=== PATIENT | male | born 1990 | race Caucasian/White ===

== ENCOUNTER 2019-01-13 19:14 | Emergency (ER) | payer SELFPAY ==
[~2019-01-13] VITALS: Ht 152.4 cm; Wt 115.0 kg
[~2019-01-13 19:14] MED LIST: NAPR-985 PO
[2019-01-13 19:32] VITALS: Ht 152.4 cm; Wt 115.0 kg
[2019-01-13] MEDS ORDERED: IBUPROFEN 600 MG TAB PO ONE (21:30)
[2019-01-13 22:14] VITALS: BP 133/91; PULSE 77; RESP 18
--- NOTE | 2019-01-15 05:46 | ERD ---
ER Documentation Chief Complaint Chief Complaint left knee, right wrist pain, fell while riding skateboard x 3 hours ago HPI 28-year-old male presents to the emergency department complaining of severe left knee pain after fall from his skateboard which occurred 3 hours prior to arrival. There is no loss of consciousness or head injury. Patient reports pain to the left knee which is worse with movement. Pain is moderate to severe. He tried no medication for relief of symptoms. ROS All systems reviewed and are negative except as per history of present illness. Medications Home Meds Active Scripts Naproxen* (Naprosyn*) 500 Mg Tablet, 500 MG PO BID PRN for PAIN AND/OR INFLAMMATION, #30 TAB Prov:ROQUE MCKEON PA-C 01/13/19 Allergies Allergies: Coded Allergies: No Known Allergy (Unverified , 01/13/19) PMhx/Soc Medical and Surgical Hx: pt denies Medical Hx, pt denies Surgical Hx Hx Alcohol Use: No Hx Substance Use: No Hx Tobacco Use: Yes Smoking Status: Current every day smoker Physical Exam Vitals Vital Signs Date Temp Pulse Resp B/P (MAP) Pulse Ox O2 O2 Flow FiO2 Time Delivery Rate 01/13/19 99.1 77 18 133/91 100 22:14 (105) 01/13/19 98.8 84 20 137/74 98 19:32 (95) Physical Exam Const: No acute distress Head: Atraumatic Eyes: Normal Conjunctiva ENT: Normal External Ears, Nose and Mouth. Neck: Full range of motion. No meningismus. Resp: Clear to auscultation bilaterally Cardio: Regular rate and rhythm, no murmurs Skin: No petechiae or rashes Back: No midline or flank tenderness Ext: Tenderness palpation of the left anterior knee. Limited range of motion secondary to pain. Patient is neurovascularly intact distally. Strength and sensation intact to the left lower extremity. Neur: Awake and alert Psych: Normal Mood and Affect Results 24 hrs Current Medications Medications Dose Sig/Tamara Start Time Status Last (Trade) Ordered Route PRN Stop Time Admin Dose Reason Admin Ibuprofen 600 mg ONCE ONCE 01/13/19 DC 01/13/19 (Motrin) PO 21:30 21:13 01/13/19 21:[address] [address] Radiology Main Line: [phone] DIAGNOSTIC IMAGING REPORT Patient: MI ZAFAR : 1990 Age: 28 Sex: M MR #: [id number] DOS: 01/13/19 0000 Ordering MD: ROQUE MCKEON PA-C Location: [facility] Room/Bed: PROCEDURE: Left knee x-ray CLINICAL INDICATION: Knee pain TECHNIQUE: AP, lateral and tunnel views of the left knee were obtained. COMPARISON: None FINDINGS: There is normal mineralization. No acute fracture or dislocation is seen. There are no significant degenerative changes. There is no joint effusion. There is prepatellar soft tissue swelling. RPTAT: AA IMPRESSION: Prepatellar soft tissue swelling. No acute fracture. .Romain Regan MD, MD Date Time Electronically viewed and signed by .Romain Regan MD, MD on 01/13/2019 21:35 .S/ CC: ROQUE MCKEON PA-C [id number] Procedures/MDM 28-year-old male presents emergency department complaining of left knee pain after injury. Patient required mobilization of the left knee with knee immobilizer for stabilization of the joint.Splint Assessment: Neurovascularly intact post splint placement with good fit. Patient's extremity symptoms have stabilized while they have been evaluated in the department and are appropriate for outpatient follow up. No evidence of compartment syndrome, neurologic injury, vascular injury, open joint, open fracture, tendon laceration, or foreign body. Patient advised to have 24 to 48-hour follow-up with orthopedic physician. He was given resources to do so. No evidence of life-threatening pathology at time of discharge. Pt/family in agreement with discharge plan/diagnosis. Pt/family advised to return immediately with any new or worsening symptoms. Follow-up with primary care physician within the next 1-2 days. Departure Diagnosis: Primary Impression: Left knee injury Encounter type: initial encounter Qualified Codes: S89.92XA - Unspecified injury of left lower leg, initial encounter Condition: Fair Patient Instructions: Knee Effusion Referrals: [facility] YOU HAVE RECEIVED A MEDICAL SCREENING EXAM AND THE RESULTS INDICATE THAT YOU DO NOT HAVE A CONDITION THAT REQUIRES URGENT TREATMENT IN THE EMERGENCY DEPARTMENT. FURTHER EVALUATION AND TREATMENT OF YOUR CONDITION CAN WAIT UNTIL YOU ARE SEEN IN YOUR DOCTORS OFFICE WITHIN THE NEXT 1-2 DAYS. IT IS YOUR RESPONSIBILITY TO MAKE AN APPOINTMENT FOR FOLOW-UP CARE. IF YOU HAVE A PRIMARY DOCTOR --you should call your primary doctor and schedule an appointment IF YOU DO NOT HAVE A PRIMARY DOCTOR YOU CAN CALL OUR PHYSICIAN REFERRAL HOTLINE AT IF YOU CAN NOT AFFORD TO SEE A PHYSICIAN YOU CAN CHOSE FROM THE FOLLOWING [facility] [address] [facility] [address] [facility] [facility] [address] [facility] [address] [facility] [facility] [address] [facility] [facility]. [address] [facility]. [facility] Urgent Care 7 a.m.- 11 p.m. Every Day of the Week NO APPOINTMENT OR AUTHORIZATION NEEDED [facility] Hours: Mon-Fri 9:00 AM - 5:00 PM Additional Instructions: SPECIALIST: YOU HAVE A MEDICAL CONDITION WHICH REQUIRES YOU TO SEE A SPECIALIST WITHIN THE NEXT 1-2 DAYS. PLEASE FOLLOW UP WITH YOUR PRIMARY PHYSICIAN FOR REFFERAL.IF YOU DO NOT HAVE A PRIMARY CARE PHYSICIAN AND/OR YOU CAN NOT AFFORD TO SEE A PHYSICIAN THE FOLLOWING RESOURCES HAVE BEEN SUPPLIED TO YOU. IT IS YOUR RESPONSIBILITY TO BE SEEN BY THE SPECIALIST: ORTHOPEDICS ROQUE MCKEON PA-C Jan 15, 2019 05:46
== END 2019-01-13 22:15 | disposition home or self-care (01) ==
LOC: FTE 19:14
DX: S89.92XA Unspecified injury of left lower leg, initial encounter (principal); F17.210 Nicotine dependence, cigarettes, uncomplicated; V00.131A Fall from skateboard, initial encounter; Y92.9 Unspecified place or not applicable
CPT/HCPCS: 73562